=== PATIENT | female | born 1985 | race Caucasian/White ===

== ENCOUNTER 2018-06-13 09:48 | Emergency (ER) | payer MEDICAID ==
[~2018-06-13] VITALS: Ht 157.5 cm; Wt 68.2 kg
[2018-06-13 10:04] VITALS: BP 131/83
[2018-06-13 10:30] LABS: CLARITY,URINE SLIGHTLY CLOUDY (Clear); COLOR,URINE YELLOW (Yellow); GLUCOSE, URINE NEGATIVE (Neg); KETONES,URINE NEGATIVE (Neg); LEUKOCYTE ESTERASE ,URINE LARGE (Neg); NITRITES, URINE NEGATIVE (Neg); OCCULT BLOOD,URINE SMALL (Neg); PROTEIN,URINE NEGATIVE (Neg); UROBILINOGEN,URINE 0.2 E.U/dL (0.2-1.0)
[2018-06-13 10:31] LABS: UA COLLECTION TYPE CLN CATCH MIDSTREAM
[2018-06-13 10:32] LABS: URINE HCG NEGATIVE (NEG)
[2018-06-13 10:36] LABS: SQUAMOUS EPITHELIAL CELL,UR FEW /LPF (FEW); WBC,URINE TNTC /HPF (0-4)
[2018-06-13 10:39] LABS: BACTERIA,URINE FEW /HPF (Neg); RBC,URINE 0-2 /HPF (0-2); WBC CLUMPS,URINE MANY /HPF (NEGATIVE)
[2018-06-13 10:40] LABS: TRANSITIONAL EPI CELLS,URINE FEW /HPF
[2018-06-13] MEDS ORDERED: metroNIDAZOLE 500mg tablet PO ONE (10:50)
[2018-06-13] MEDS ORDERED: azithromycin 250mg tablet PO ONE (10:50)
[2018-06-13] MEDS ORDERED: CefTRIAXone 250MG IM Kit w/LIDOcaine IM ONE (10:50)
[2018-06-14 08:15] LABS: RPR Non Reactive (Non Reactive)
== END 2018-06-13 11:32 | disposition home or self-care (01) ==
LOC: ER 09:55
DX: A64 Unspecified sexually transmitted disease (principal); F17.200 Nicotine dependence, unspecified, uncomplicated
CPT/HCPCS: 36415; 81001; 81025; 86592; 87088; 87491; 87591; 96372; 99283; J0696; 87077; 87186; J3490

== ENCOUNTER 2018-09-28 07:13 | Emergency (ER) | payer MEDICAID ==
[~2018-09-28] VITALS: Ht 157.5 cm; Wt 69.5 kg
[2018-09-28] MEDS ORDERED: normal saline 1000ml 1,000 ML IV ONE (08:40)
[2018-09-28] MEDS ORDERED: ketorolac tromethamine 15mg/ml inj. IV ONE (08:40)
[2018-09-28] MEDS ORDERED: diphenhydrAMINE 50 mg/ml inj IV ONE (08:40)
[2018-09-28] MEDS ORDERED: proCHLORperazine 10 MG/2 ml inj IV ONE (08:40)
[2018-09-28 10:29] VITALS: BP 101/67
== END 2018-09-28 10:20 | disposition home or self-care (01) ==
LOC: ER 07:14
DX: G43.909 Migraine, unspecified, not intractable, without status migrainosus (principal); R11.2 Nausea with vomiting, unspecified; G89.29 Other chronic pain; F10.99 Alcohol use, unspecified with unspecified alcohol-induced disorder; Y90.9 Presence of alcohol in blood, level not specified
CPT/HCPCS: 96361; 96374; 96375; 99283; J0780; J1200; J1885; J7030

== ENCOUNTER 2019-01-03 07:51 | Emergency (ER) | payer MEDICAID ==
[~2019-01-03] VITALS: Ht 157.5 cm; Wt 70.5 kg
[2019-01-03 08:07] VITALS: BP 123/81
[2019-01-03] MEDS ORDERED: normal saline 1000ML IV soln IVB ONE (09:10)
[2019-01-03] MEDS ORDERED: diphenhydrAMINE 50 mg/ml inj IV ONE (09:10)
[2019-01-03] MEDS ORDERED: proCHLORperazine 10 MG/2 ml inj IV ONE (09:10)
== END 2019-01-03 12:05 | disposition home or self-care (01) ==
LOC: ER 07:52
DX: G43.909 Migraine, unspecified, not intractable, without status migrainosus (principal); R11.10 Vomiting, unspecified; G89.29 Other chronic pain
CPT/HCPCS: 96361; 96374; 96375; 99283; J0780; J1200; J7030